=== PATIENT | female | born 1980 | race American Indian/Alaskan Native ===

== ENCOUNTER 2021-08-25 21:07 | Emergency (ER) | payer MEDICAID, OTHER ==
[2021-08-25] MEDS ORDERED: Cephalexin 500 MG Cap PO ONE (21:08)
[2021-08-25] MEDS ORDERED: Sodium Chloride 0.9% 10 ML Syringe FLUSH PRN (21:24)
[2021-08-25] MEDS ORDERED: Sodium Chloride 0.9% 1,000 ML IV ONE (21:25)
[2021-08-25 21:28] VITALS: BP 129/78; PULSE 112
[2021-08-25 21:46] LABS: ANION GAP 13.1 mEq/L (7-13); CHLORIDE,CL 100 mmol/L (98-107); SODIUM,NA 132 mmol/L (136-145)
[2021-08-25 22:19] LABS: CORONAVIRUS COVID-19 NAA NEGATIVE (NEGATIVE)
[2021-08-25 22:31] LABS: METHAMPHETAMINES,URINE POSITIVE (NEGATIVE)
[2021-08-25 22:32] LABS: AMPHETAMINES,URINE POSITIVE (NEGATIVE); BARBITURATES,URINE NEGATIVE (NEGATIVE); BENZODIAZEPINE,URINE NEGATIVE (NEGATIVE); MDMA (ECSTASY), URINE NEGATIVE (NEGATIVE); METHADONE,URINE NEGATIVE (NEGATIVE); OPIATES,URINE NEGATIVE (NEGATIVE); OXYCODONE,URINE NEGATIVE (NEGATIVE); PHENCYCLIDINE,URINE NEGATIVE (NEGATIVE); TCA,URINE NEGATIVE (NEGATIVE)
[2021-08-25] MEDS ORDERED: Piperacillin/Tazobactam 3.375 GM in Sodium Chloride 0.9% 100 ML IV ONE (23:16)
[2021-08-26] MEDS ORDERED: Cephalexin 500 MG Cap ONE (00:06)
== END 2021-08-26 00:07 | disposition home or self-care (01) ==
LOC: DL.ED 21:07
DX: N30.01 Acute cystitis with hematuria (principal); Z20.822 Contact with and (suspected) exposure to COVID-19
CPT/HCPCS: 0240U; 36415; 71250; 74176; 80053; 80305-QW; 80307; 81001; 83690; 84484; 85025; 87040; 87077; 87086; 87088; 87186; 96365; 99284; 99285-25; A9270-GY; J2543; J3490; J7030

== ENCOUNTER 2023-05-17 19:08 | Emergency (ER) | payer SELFPAY ==
[2023-05-17 19:56] VITALS: BP 120/71; PULSE 113
[2023-05-17 20:07] LABS: HEMATOCRIT 25.7 % (37.0-47.0); HEMOGLOBIN 7.6 g/dL (12.0-16.0); MEAN CORPUSCULAR HEMOGLOBIN 18.3 pg (27.0-34.0); MEAN CORPUSCULAR HGB CONC 29.6 g/dL (33.0-35.0); MEAN CORPUSCULAR VOLUME 61.9 fL (80-100); PLATELET COUNT,PLT 430 10^3/uL (150-450); RED BLOOD CELL COUNT 4.15 10^6/uL (4.2-5.4); WHITE BLOOD CELL COUNT,WBC 10.7 10^3/uL (5.0-10.0)
[2023-05-17] MEDS ORDERED: Sodium Chloride 0.9% 10 ML Syringe FLUSH PRN (20:08)
[2023-05-17] MEDS: Acetaminophen 500 MG Tab PO ONE (20:15)
[2023-05-17] MEDS: Albuterol/Ipratropium 3.0-0.5 MG/3 ML Neb Soln NEB ONE (20:15)
[2023-05-17 20:16] LABS: BASOPHILS PERCENT AUTO 0.1 % (0.0-1.0); EOSINOPHILS PERCENT AUTO 0.1 % (1.0-3.0); MONOCYTES PERCENT AUTO 8.1 % (2-8); NEUTROPHILS PERCENT AUTO 73.7 % (42.2-75.2)
[2023-05-17 20:28] LABS: A/G RATIO 0.67; ALBUMIN 3.3 g/dL (3.4-5.0); ANION GAP 14.9 mEq/L (7-13); BILIRUBIN TOTAL 0.4 mg/dL (0.2-1.0); BUN/CREATININE RATIO 16.9 (No establ ref range); CALCIUM 8.6 mg/dL (8.5-10.1); CREATININE 0.65 mg/dL (0.55-1.02); EST CRCL DRUG DOSING (CG) 89.8 mL/min; POTASSIUM,K 2.9 mmol/L (3.5-5.1); PROTEIN TOTAL,TP 8.2 g/dL (6.4-8.2)
[2023-05-17 20:32] LABS: LYMPHOCYTES PERCENT MAN 16 % (20-50); MICROCYTOSIS 1+ SLIGHT; MONOCYTES PERCENT MAN 5 % (2-8); SEG NEUTROPHILS PERCENT MAN 79 % (42-75)
[2023-05-17] MEDS: Potassium Chloride 10 MEQ Tab.ER PO ONE (20:40)
[2023-05-17 20:42] LABS: CORONAVIRUS COVID-19 NAA NEGATIVE (NEGATIVE); INFLUENZA A NAA POSITIVE (NEGATIVE); INFLUENZA B NAA NEGATIVE (NEGATIVE); RESPIRATORY SYNCYTIAL VIR NAA NEGATIVE (NEGATIVE)
[2023-05-17] MEDS: Take Home: Potassium Chloride 10 MEQ Tab, 10 Tab Pack PO ONE (21:24)
[2023-05-17] MEDS: Take Home: Oseltamivir 75 MG Cap, 2 Cap Pack PO ONE (21:24)
[2023-05-17] MEDS: Oseltamivir 75 MG Cap PO ONE (21:24)
== END 2023-05-17 21:36 | disposition home or self-care (01) ==
LOC: DL.ED 19:08
DX: J10.1 Influenza due to other identified influenza virus with other respiratory manifestations (principal); E87.6 Hypokalemia; F17.210 Nicotine dependence, cigarettes, uncomplicated
CPT/HCPCS: 0241U; 36415; 71046; 80053; 83735; 85025; 87081; 87430; 99283; 99284; A9270-GY; J7620-GY